=== PATIENT | female | born 1995 | race Caucasian/White ===

== ENCOUNTER 2020-03-02 15:02 | Inpatient (IN) | payer MEDICAID ==
[2020-03-02] MEDS ORDERED: Sodium Chloride 0.9% 10 ML Syringe FLUSH PRN (15:37)
[2020-03-02] MEDS ORDERED: Nalbuphine 10 MG/1 ML Vial IVPUSH PRN (15:37)
[2020-03-02] MEDS ORDERED: Acetaminophen 325 MG Tab PO PRN (15:37)
[2020-03-02] MEDS ORDERED: Oxytocin/Lactated Ringers 10 UNIT/1,000 ML BAG IV SCH (15:45)
[2020-03-02] MEDS ORDERED: Lactated Ringers 1,000 ML IV SCH (15:45)
[2020-03-02] MEDS: Misoprostol 25 MCG (1/4 of 100 MCG) Tab PO PRN ×2 (17:25→21:47)
--- NOTE | 2020-03-02 17:45 | PCM.LDHP ---
L&D History of Present Illness - General Date of Service: 03/02/20 Admit Problem/Dx: Patient Status Order with Admit Dx/Problem 03/02/20 15:38 Patient Status [ADT] Routine Admission Diagnosis/Problem Admission Diagnosis/Problem Source of Information: Patient History Limitations: Reports: No Limitations - History of Present Illness Introduction:: Mary Jane Walton is a 24-year-old G1, P0 at 39 weeks 6 days by a 20-week ultrasound who presents for elective induction of labor. She states that since last week she has not had any significant changes. She did have some increased amounts of cramping for the first night after she had her membranes stripped in the office. She denies any significant contractions other than the occasional Leslie Velez contractions since last week. She denies any leaking of fluid or vaginal bleeding. Reports that she has been having good movement. Timing/Duration: Reports: intermittent Location, : Reports: Pelvic Quality: Reports: Pressure Severity: Mild Associated Symptoms: Denies: vaginal bleeding, vaginal discharge, vaginal fluid Present Illness Comments:: Mary Jane Walton is a 24-year-old G1, P0 at 39 weeks 6 days by a 20-week ultrasound who presents for elective induction of labor. She had routine care with myself, Dr. Felpie, starting at 20 weeks gestational age when she had a dating ultrasound for her . She declined the flu vaccine during . She received Tdap vaccine on December 10, 2019. She had an anatomy ultrasound done at 21 weeks gestational age that was consistent with her earlier 20-week ultrasound. She did not have any issues or complications during her . This has been uncomplicated. [employer]ER CLE[employer]ER history G1: Current Reports that her last Pap smear was 2 years ago and was normal. We will plan to get a repeat Pap smear after delivery. Denies history of sexual transmitted infections. labs Blood type: O+ Antibody screen: Negative First trimester hematocrit/hemoglobin: 30.0%/13.0 on October 15, 2019 Platelets: 278 on October 15, 2019 Urine culture: Normal urogenital romero on culture Rubella status: Immune Hepatitis B surface antigen: Negative RPR: Negative HIV: Negative Gonorrhea: Negative Chlamydia: Negative Anatomy ultrasound: Normal anatomy ultrasound, anterior placenta, no previa One hour glucose tolerance test: 90 Second trimester hematocrit/hemoglobin: 32.7%/11.1 on December 16, 2019 Platelets: 290 on December 16, 2019 GBS status: Negative - Related Data Allergies/Adverse Reactions: Allergies Allergy/AdvReac Type Severity Reaction Status Date / Time No Known Allergies Allergy Verified 03/02/20 16:04 Past Medical History Dermatologic History: Reports: Eczema - Past Surgical History HEENT Surgical History: Reports: Tonsillectomy Social & Family History - Tobacco Use Tobacco Use Status *Q: Never Tobacco User - Tobacco Core Measures Tobacco Use/Smoking Within Last 30 Days: No Smokeless Tobacco Use in Last 30 Days: No - Alcohol Use Alcohol Use History: No - Recreational Drug Use Recreational Drug Use: No Drug Use in Last 12 Months: No - Living Situation & Occupation Living situation: Reports: , with Spouse Occupation: Employed H&P Review of Systems - Review of Systems: Review Of Systems: See Below General: Denies: Fever, Chills, Malaise, Weakness, Fatigue HEENT: Reports: Sinus Congestion. Denies: Headaches, Rhinitis, Post Nasal Drip, Sore Throat, Visual Changes Pulmonary: Denies: Shortness of Breath, Wheezing, Pleuritic Chest Pain, Cough Cardiovascular: Denies: Chest Pain, Palpitations, Dyspnea on Exertion, Orthopnea Gastrointestinal: Reports: Nausea. Denies: Abdominal Pain, Constipation, Diarrhea, Vomiting Genitourinary: Denies: Dysuria, Frequency, Burning, Pain, Urgency Musculoskeletal: Reports: Back Pain Skin: Denies: Rash, Lesions Psychiatric: Denies: Depression, Anxiety L&D Exam - Exam Exam: See Below - Vital Signs Vital Signs: Last Vital Signs Temp 37.1 C 03/02/20 15:27 Pulse 83 03/02/20 15:27 Resp 18 03/02/20 15:27 BP 140/88 03/02/20 15:27 Pulse Ox 97 03/02/20 15:27 - OB Specific Contraction Duration (sec): 45-60 Contraction Frequency (min): 10-15 Contraction Intensity: Mild Movement: Active Heart Tones: Present Heart Tones per Min: 130 (+15 x 15 accelerations, no decelerations) Heart Rate (FHR) Variability: Moderate (6-25 bmp) Presentation: Vertex Estimated Weight: 7-7.5 lbs Ryley's - Matta Score Matta Score Cervix Position: Midposition Matta Score Consistency: Medium Matta Score Effacement: 31-50% (50%) Matta Score Dilation: 1-2 cm (1.5 cm) Matta Score Infant's Station: -3 (-4) Matta Score Total: 4 - Exam General: Alert, Oriented HEENT: Conjunctiva Clear, EOMI Neck: Supple, Trachea Midline Lungs: Clear to Auscultation, Normal Respiratory Effort Cardiovascular: Regular Rate, Regular Rhythm GI/Abdominal Exam: Soft, Non-Tender, No Distention, Other Genitourinary: Normal external exam Back Exam: Normal Inspection Extremities: Normal Inspection, Pedal Edema (1+) Skin: Warm, Dry, Intact Psychiatric: Alert, Normal Affect, Normal Mood - Patient Data Lab Results Last 24 hrs: Laboratory Results - last 24 hr 03/02/20 03/02/20 03/02/20 Range/Units 16:06 16:06 16:10 WBC 8.58 (3.98-10.04) K/mm3 RBC 3.56 L (3.98-5.22) M/mm3 Hgb 11.8 (11.2-15.7) gm/dl Hct 34.7 (34.1-44.9) % MCV 97.5 H (79.4-94.8) fl MCH 33.1 H (25.6-32.2) pg MCHC 34.0 (32.2-35.5) g/dl RDW Std Deviation 50.5 H (36.4-46.3) fL Plt Count 264 (182-369) K/mm3 MPV 9.2 L (9.4-12.3) fl Neut % (Auto) 72.0 H (34.0-71.1) % Lymph % (Auto) 16.9 L (19.3-51.7) % Heard % (Auto) 9.8 (4.7-12.5) % Eos % (Auto) 0.5 L (0.7-5.8) Baso % (Auto) 0.1 (0.1-1.2) % Neut # (Auto) 6.18 H (1.56-6.13) K/mm3 Lymph # (Auto) 1.45 (1.18-3.74) K/mm3 Heard # (Auto) 0.84 H (0.24-0.36) K/mm3 Eos # (Auto) 0.04 (0.04-0.36) K/mm3 Baso # (Auto) 0.01 (0.01-0.08) K/mm3 Sodium 140 (136-145) mEq/L Potassium 3.9 (3.5-5.1) mEq/L Chloride 106 (98-107) mEq/L Carbon Dioxide 24 (21-32) mEq/L Anion Gap 13.9 (5-15) BUN 6 L (7-18) mg/dL Creatinine 0.5 L (0.55-1.02) mg/dL Est Cr Clr Drug Dosing TNP Estimated GFR (MDRD) > 60 (>60) mL/min BUN/Creatinine Ratio 12.0 L (14-18) Glucose 98 (74-106) mg/dL Calcium 8.9 (8.5-10.1) mg/dL Total Bilirubin 0.6 (0.2-1.0) mg/dL AST 17 (15-37) U/L ALT 23 (14-59) U/L Alkaline Phosphatase 187 H (46-116) U/L Total Protein 6.5 (6.4-8.2) g/dl Albumin 2.7 L (3.4-5.0) g/dl Globulin 3.8 gm/dL Albumin/Globulin Ratio 0.7 L (1-2) SARS-CoV-2 RNA (ANGE) Negative (NEGATIVE) Result Diagrams: 03/02/20 16:06 03/02/20 16:06 - Problem List (1) 40 weeks gestation of SNOMED Code(s): 15955834 ICD Code: Z3A.40 - 40 WEEKS GESTATION OF Status: Acute Current Visit: Yes Problem List Initiated/Reviewed/Updated: Yes Orders Last 24hrs: Active Orders 24 hr Category Date Time Status Patient Status [ADT] Routine ADT 03/02/20 15:38 Active Activity as Tolerated [RC] PFP Care 03/02/20 15:37 Active Communication Order [RC] ASDIRECTED Care 03/02/20 15:37 Active Communication Order [RC] ASDIRECTED Care 03/02/20 15:42 Active Communication Order [RC] ASDIRECTED Care 03/02/20 15:42 Active Communication Order [RC] ASDIRECTED Care 03/02/20 15:42 Active Heart Tones [RC] ASDIRECTED Care 03/02/20 15:38 Active Monitoring [RC] INTERMITTENT Care 03/02/20 15:42 Active Non Stress Test [RC] PER UNIT ROUTINE Care 03/02/20 15:37 Active Notify Provider Vital Signs [RC] PRN Care 03/02/20 15:40 Active Notify Provider [RC] ASDIRECTED Care 03/02/20 15:42 Active Notify Provider [RC] PFP Care 03/02/20 15:37 Active Notify Provider [RC] PRN Care 03/02/20 15:37 Active Peripheral IV Care [RC] . DIRECTED Care 03/02/20 15:38 Active Pump Management, Intrathecal [RC] ASDIRECTED Care 03/02/20 15:39 Active Urinary Catheter Assessment [RC] ASDIRECTED Care 03/02/20 15:37 Active Vaginal Exam [RC] ASDIRECTED Care 03/02/20 15:42 Active Vital Signs [RC] PER UNIT ROUTINE Care 03/02/20 15:37 Active Regular Diet [DIET] Diet 03/02/20 Lunch Active PROTEIN/CREATININE RATIO,URINE [URCHEM] Routine Lab 03/02/20 15:37 Ordered RAPID PLASMA REAGIN,RPR [CHEM] Routine Lab 03/02/20 16:06 Received Acetaminophen [TylenoL] Med 03/02/20 15:37 Active 650 mg PO Q6H PRN Lactated Ringers [Ringers, Lactated] 1,000 ml Med 03/02/20 15:45 Active IV ASDIRECTED Lactated Ringers [Ringers, Lactated] 1,000 ml Med 03/02/20 15:45 Active IV ASDIRECTED Nalbuphine [Nubain] Med 03/02/20 15:37 Active 10 mg IVPUSH Q2H PRN Oxytocin/Lactated Ringers [Pitocin in LR 10 Units/1,000 Med 03/02/20 15:45 Active ML] 10 unit in 1,000 ml IV .CONTINUOUS Sodium Chloride 0.9% [Saline Flush] Med 03/02/20 15:37 Active 10 ml FLUSH ASDIRECTED PRN miSOPROStoL [Cytotec] Med 03/02/20 15:42 Active 25 mcg PO Q4H PRN Electronic Heart Tones Ext w TOCO [WOMSER] Oth 03/02/20 15:37 Ordered Routine Electronic Heart Tones Internal [WOMSER] Per Unit Oth 03/02/20 15:37 Ordered Routine Medication Administration Instruction [OM.PC] Oth 03/02/20 15:45 Ordered ASDIRECTED Peripheral IV Insertion Adult [OM.PC] Routine Oth 03/02/20 15:37 Ordered Resuscitation Status Routine Resus Stat 03/02/20 15:37 Ordered Medication Orders Acetaminophen (Tylenol) 650 mg PO Q6H PRN PRN Reason: Pain (Mild 1-3) and fever Oxytocin/Lactated Ringer's (Pitocin In Lr 10 Units/1,000 Ml) 10 unit in 1,000 mls @ 100 mls/hr IV .CONTINUOUS GRETA; Protocol Lactated Ringer's (Ringers, Lactated) 1,000 mls @ 100 mls/hr IV ASDIRECTED GRETA Lactated Ringer's (Ringers, Lactated) 1,000 mls @ 40 mls/hr IV ASDIRECTED GRETA Misoprostol (Cytotec) 25 mcg PO Q4H PRN PRN Reason: cervical ripening Last Admin: 03/02/20 17:25 Dose: 25 mcg Documented by: AMAURI Nalbuphine HCl (Nubain) 10 mg IVPUSH Q2H PRN PRN Reason: Pain Sodium Chloride (Saline Flush) 10 ml FLUSH ASDIRECTED PRN PRN Reason: Keep Vein Open Assessment/Plan Comment:: Mary Jane Walton is a 24-year-old G1, P0 at 39 weeks 6 days by a 20-week ultrasound undergoing elective induction of labor Patient was counseled on placement of a Yin bulb for mechanical dilation of the cervix with placement either by manual placement or with speculum. Patient agreed to the procedure. Patient underwent cervical examination that showed 1.5/50/-4/medium/mid position. It was felt that due to the location of the cervix it would be difficult to place manually and decision was made to place the Yin bulb with a speculum. Patient was placed in dorsal lithotomy position using the stirrups on the bed and the speculum was placed and the cervix was visualized. An 18 [place] Yin bulb was then passed through the cervix with a ring forceps and the Yin balloon was inflated. The Yin bulb had gentle traction applied after 30 mL of fluid was instilled and the balloon was noted to not be in the correct position. This was attempted 1 additional time and again the flow of was not in correct position. Decision was made to discontinue atte mpted placement with the ring forceps and speculum. Decision was made to attempt placement manually with a mandolin catheter stylette. Patient had the bed reassembled and she was then placed in dorsal supine position for placement with manual exam. The mandolin catheter stylette was inserted through the tubing of the catheter to approximately the level of the Yin balloon. A cervical exam was then performed and the dilation was unchanged from the previous exam. The Yin balloon was then placed through the cervix and advanced past the Yin balloon. The Yin balloon was then inflated with 60 mL of sterile saline. Gentle traction was again applied to the Yin catheter and the Yin catheter was felt to be in correct position through the cervix. The patient then had insertion of Cytotec 25 mcg vaginally for induction of labor. Refer to observation for elective induction of labor Start induction of labor with Cytotec 25 mcg vaginally now and every 4 hours Transcervical Yin bulb placed with use of mandolin catheter stylet Intermittent monitoring while on Cytotec with monitoring for 30 minutes after placement of Cytotec and may ambulate as tolerated with category [address] IV and have Lactated Ringer's at 125 ml/hr if not tolerating regular diet May have regular diet while on Cytotec induction Activity as tolerated May have epidural as desired Plans to breast-feed after delivery Anticipate vaginal delivery unless otherwise indicated Jim Felipe MD 5:54 PM 03/02/2020
[2020-03-02] MEDS ORDERED: Bupivacaine/fentaNYL/NS 100 ML Bag EPIDUR PRN (18:41)
[2020-03-02] MEDS ORDERED: fentaNYL 100 MCG/2 ML SDV EPIDUR PRN (18:41)
[2020-03-02] MEDS ORDERED: diphenhydrAMINE 50 MG/ML SDV IVPUSH PRN (18:41)
[2020-03-02] MEDS ORDERED: ePHEDrine 50 MG/ML SDV IVPUSH PRN (18:41)
--- NOTE | 2020-03-02 21:57 | PCM.PNLD ---
Labor Progress Note - VS & Meds Vital Signs: Last Vital Signs Temp 37.1 C 03/02/20 15:27 Pulse 83 03/02/20 15:27 Resp 18 03/02/20 15:27 BP 140/88 03/02/20 15:27 Pulse Ox 97 03/02/20 15:27 Active Medications: Current Medications Acetaminophen (Tylenol) 650 mg PO Q6H PRN PRN Reason: Pain (Mild 1-3) and fever Diphenhydramine HCl (Benadryl) 25 mg IVPUSH Q6H PRN PRN Reason: pruritis Ephedrine Sulfate (Ephedrine Sulfate) 5 mg IVPUSH ASDIRECTED PRN PRN Reason: Hypotension Fentanyl (Sublimaze) 100 mcg EPIDUR Q3H PRN PRN Reason: Pain Fentanyl/Bupivacaine HCl (Fentanyl/Bupivacaine/Ns 2 Mcg-0.125% 100 Ml) 100 ml EPIDUR ASDIRECTED PRN PRN Reason: Pain Oxytocin/Lactated Ringer's (Pitocin In Lr 10 Units/1,000 Ml) 10 unit in 1,000 mls @ 100 mls/hr IV .CONTINUOUS GRETA; Protocol Lactated Ringer's (Ringers, Lactated) 1,000 mls @ 100 mls/hr IV ASDIRECTED GRETA Lactated Ringer's (Ringers, Lactated) 1,000 mls @ 40 mls/hr IV ASDIRECTED GRETA Misoprostol (Cytotec) 25 mcg PO Q4H PRN PRN Reason: cervical ripening Last Admin: 03/02/20 21:47 Dose: 25 mcg Documented by: Nalbuphine HCl (Nubain) 10 mg IVPUSH Q2H PRN PRN Reason: Pain Sodium Chloride (Saline Flush) 10 ml FLUSH ASDIRECTED PRN PRN Reason: Keep Vein Open - Uterine Contractions Uterine Monitoring Mode: External [place] Contraction Frequency (min): 2-3 Contraction Duration (sec): 30-75 Contraction Intensity: Moderate Uterine Resting Tone: Soft - Monitoring Monitor Mode: Doppler/Auscultation Heart Rate (FHR) Baseline: 125 Heart Rate (FHR) Per Doppler: 125 Heart Rate (FHR) Variability: Moderate (6-25 bmp) Accelerations: Present, 15x15 Decelerations: None Strip Review: Category I - Vaginal Exam Dilation (cm): 3 Effacement (Percent): 90 Station: -3 (Difficult to fully assess station with Yin bulb in place) Cervical Position: Anterior Sterile Vaginal Exam Performed By: Jim Felipe - Labor Progress (Free Text) Labor Progress: Mary Jane Walton is a 24-year-old at 39 weeks 6 days undergoing elective induction of labor Patient making some progress with first dose of Cytotec given at 5:30 PM Patient had transcervical Yin bulb placed at that time Cervical exam at this time was 3/90/-3/soft/anterior with the Yin bulb able to be palpated through the cervical opening Vital signs within normal limits since initial elevated blood pressure Lab work all within normal limits and does not show any abnormalities Next dose of Cytotec placed vaginally with cervical exam Plan to transition to Pitocin for augmentation of labor once the Yin bulb has come out Anticipate vaginal delivery unless otherwise indicated Jim Felipe MD 9:57 PM 03/02/2020
[2020-03-03] MEDS ORDERED: Bupivacaine 0.25% 10 ML SDV ONE
[2020-03-03] MEDS ORDERED: Oxytocin/Lactated Ringers 10 UNIT/1,000 ML BAG IV SCH ×2 (00:45→08:12)
[2020-03-03] MEDS: Lactated Ringers 1,000 ML IV SCH ×3 (00:54→05:29)
--- NOTE | 2020-03-03 02:43 | PCM.PNLD ---
Labor Progress Note - VS & Meds Vital Signs: Last Vital Signs Temp 37.1 C 03/02/20 15:27 Pulse 83 03/02/20 15:27 Resp 18 03/02/20 15:27 BP 140/88 03/02/20 15:27 Pulse Ox 97 03/02/20 15:27 Active Medications: Current Medications Acetaminophen (Tylenol) 650 mg PO Q6H PRN PRN Reason: Pain (Mild 1-3) and fever Diphenhydramine HCl (Benadryl) 25 mg IVPUSH Q6H PRN PRN Reason: pruritis Ephedrine Sulfate (Ephedrine Sulfate) 5 mg IVPUSH ASDIRECTED PRN PRN Reason: Hypotension Fentanyl (Sublimaze) 100 mcg EPIDUR Q3H PRN PRN Reason: Pain Fentanyl/Bupivacaine HCl (Fentanyl/Bupivacaine/Ns 2 Mcg-0.125% 100 Ml) 100 ml EPIDUR ASDIRECTED PRN PRN Reason: Pain Oxytocin/Lactated Ringer's (Pitocin In Lr 10 Units/1,000 Ml) 10 unit in 1,000 mls @ 100 mls/hr IV .CONTINUOUS GRETA; Protocol Lactated Ringer's (Ringers, Lactated) 1,000 mls @ 40 mls/hr IV ASDIRECTED GRETA Last Admin: 03/03/20 00:54 Dose: 999 mls/hr Documented by: Oxytocin/Lactated Ringer's (Pitocin In Lr 10 Units/1,000 Ml) 10 unit in 1,000 mls @ 12 mls/hr IV TITRATE GRETA; Protocol Nalbuphine HCl (Nubain) 10 mg IVPUSH Q2H PRN PRN Reason: Pain Sodium Chloride (Saline Flush) 10 ml FLUSH ASDIRECTED PRN PRN Reason: Keep Vein Open Discontinued Medications Lactated Ringer's (Ringers, Lactated) 1,000 mls @ 100 mls/hr IV ASDIRECTED GRETA Misoprostol (Cytotec) 25 mcg PO Q4H PRN PRN Reason: cervical ripening Last Admin: 03/02/20 21:47 Dose: 25 mcg Documented by: - Uterine Contractions Uterine Monitoring Mode: IUPC Contraction Frequency (min): 1-2 Contraction Duration (sec): 45-60 Contraction Intensity: Strong Uterine Resting Tone: Soft - Monitoring Monitor Mode: Spiral Electrode Heart Rate (FHR) Baseline: 155 Heart Rate (FHR) Variability: Moderate (6-25 bmp) Accelerations: Present, 15x15 Decelerations: Early, Recurrent (>50% x 20 min) Strip Review: Category I - Vaginal Exam Dilation (cm): 7 Effacement (Percent): 70 Station: 0 Cervical Position: Anterior Sterile Vaginal Exam Performed By: Jim Felipe Vaginal Exam Comment: Patient with a category 2 contraction pattern with tachycardia that did not resolve with 1 L fluid bolus. Nurse desired to have closer monitoring with internal monitors. Patient counseled on the risks and benefits of the procedure including need for artificial rupture membranes in order to place the internal monitors. Patient gave verbal consent to proceed with the procedure for internal monitor placement. Patient placed in dorsal supine positions and cervical exam performed and she was found to be 7/70/0/soft/anterior. Artificial rupture of membranes performed with [place] with return of moderate amount of fluid with light meconium staining. A scalp electrode was placed without difficulty and good heart rate was obtained. An intrauterine pressure catheter was then placed without difficulty with some bloody stained fluid noted to be within the IUPC catheter. No vaginal bleeding noted after the placement of the IUPC. Mother and tolerated procedure without difficulty. - Labor Progress (Free Text) Labor Progress: Mary Jane Walton is a 24-year-old at 40 weeks 0 days undergoing elective induction of labor Patient was having a category 2 monitoring strip and nurse wanted internal monitors for closer monitoring. Patient had been counseled on having the procedure and underwent the procedure as per the note above. There was notation of some bloody stained fluid within the IUPC catheter at time of placement of the IUPC. There is no bleeding noted in the fluid coming out vaginally after placement of the IUPC. * Patient making good progress at this time * Tachysystole noted with uterine contractions every 1 to 1.5 minutes. Recommend to withhold any augmentation at this time * Uterine contractions appear to be adequate with good [place] units measuring approximately 630 units * After placement of the monitors it appears that patient is having a category 2 strip with alternating between minimal to moderate variability and early decelerations * Vital signs continues to be good at this time without any mild range blood pressures * Continue routine monitoring of vital signs * Patient may have epidural as desired * Notify consolidation accountant as indicated with light meconium stained fluid * Anticipate vaginal delivery unless otherwise indicated Jim Felipe MD 2:47 AM 03/03/2020
--- NOTE | 2020-03-03 03:31 | PCM.PREANE ---
Preanesthetic Assessment - Procedure Proposed Procedure: epidural - Anesthesia/Transfusion/Family Hx Anesthesia History: Prior Anesthesia Without Reaction Family History of Anesthesia Reaction: No Transfusion History: No Prior Transfusion(s) Type of Transfusion Reactions: Reports: Unknown - Review of Systems General: Fatigue Pulmonary: No Symptoms Cardiovascular: No Symptoms Gastrointestinal: Abdominal Pain (labor) Neurological: No Symptoms Other: Reports: None - Physical Assessment Vital Signs: Last Vital Signs Temp 37.1 C 03/02/20 15:27 Pulse 83 03/02/20 15:27 Resp 18 03/02/20 15:27 BP 140/88 03/02/20 15:27 Pulse Ox 97 03/02/20 15:27 Height: 1.6 m Weight: 84.822 kg ASA Class: 2 Mental Status: Alert & Oriented x3 Airway Class: Mallampati = 1 Dentition: Reports: Normal Dentition Thyro-Mental Finger Breadths: 3 Mouth Opening Finger Breadths: 3 ROM/Head Extension: Full Lungs: Clear to Auscultation, Normal Respiratory Effort Cardiovascular: Regular Rate, Regular Rhythm - Lab Values: Laboratory Last Values WBC 8.58 K/mm3 (3.98-10.04) 03/02/20 16:06 RBC 3.56 M/mm3 (3.98-5.22) L 03/02/20 16:06 Hgb 11.8 gm/dl (11.2-15.7) 03/02/20 16:06 Hct 34.7 % (34.1-44.9) 03/02/20 16:06 MCV 97.5 fl (79.4-94.8) H 03/02/20 16:06 MCH 33.1 pg (25.6-32.2) H 03/02/20 16:06 MCHC 34.0 g/dl (32.2-35.5) 03/02/20 16:06 RDW Std Deviation 50.5 fL (36.4-46.3) H 03/02/20 16:06 Plt Count 264 K/mm3 (182-369) 03/02/20 16:06 MPV 9.2 fl (9.4-12.3) L 03/02/20 16:06 Neut % (Auto) 72.0 % (34.0-71.1) H 03/02/20 16:06 Lymph % (Auto) 16.9 % (19.3-51.7) L 03/02/20 16:06 [place] % (Auto) 9.8 % (4.7-12.5) 03/02/20 16:06 Eos % (Auto) 0.5 (0.7-5.8) L 03/02/20 16:06 Baso % (Auto) 0.1 % (0.1-1.2) 03/02/20 16:06 Neut # (Auto) 6.18 K/mm3 (1.56-6.13) H 03/02/20 16:06 Lymph # (Auto) 1.45 K/mm3 (1.18-3.74) 03/02/20 16:06 [place] # (Auto) 0.84 K/mm3 (0.24-0.36) H 03/02/20 16:06 Eos # (Auto) 0.04 K/mm3 (0.04-0.36) 03/02/20 16:06 Baso # (Auto) 0.01 K/mm3 (0.01-0.08) 03/02/20 16:06 Sodium 140 mEq/L (136-145) 03/02/20 16:06 Potassium 3.9 mEq/L (3.5-5.1) 03/02/20 16:06 Chloride 106 mEq/L (98-107) 03/02/20 16:06 Carbon Dioxide 24 mEq/L (21-32) 03/02/20 16:06 Anion Gap 13.9 (5-15) 03/02/20 16:06 BUN 6 mg/dL (7-18) L 03/02/20 16:06 Creatinine 0.5 mg/dL (0.55-1.02) L 03/02/20 16:06 Est Cr Clr Drug Dosing TNP 03/02/20 16:06 Estimated GFR (MDRD) > 60 mL/min (>60) 03/02/20 16:06 BUN/Creatinine Ratio 12.0 (14-18) L 03/02/20 16:06 Glucose 98 mg/dL (74-106) 03/02/20 16:06 Calcium 8.9 mg/dL (8.5-10.1) 03/02/20 16:06 Total Bilirubin 0.6 mg/dL (0.2-1.0) 03/02/20 16:06 AST 17 U/L (15-37) 03/02/20 16:06 ALT 23 U/L (14-59) 03/02/20 16:06 Alkaline Phosphatase 187 U/L (46-116) H 03/02/20 16:06 Total Protein 6.5 g/dl (6.4-8.2) 03/02/20 16:06 Albumin 2.7 g/dl (3.4-5.0) L 03/02/20 16:06 Globulin 3.8 gm/dL 03/02/20 16:06 Albumin/Globulin Ratio 0.7 (1-2) L 03/02/20 16:06 Ur Random Creatinine 15.6 mg/dL (30.0-125.0) L 03/02/20 18:15 U Random Total Protein < 6.0 mg/dL (0.0-11.8) 03/02/20 18:15 Protein/Creatinin Ratio TNP 03/02/20 18:15 RPR Non-reactive (NONREACTIVE) 03/02/20 16:06 SARS-CoV-2 RNA (ANGE) Negative (NEGATIVE) 03/02/20 16:10 - Allergies Allergies/Adverse Reactions: Allergies Allergy/AdvReac Type Severity Reaction Status Date / Time No Known Allergies Allergy Verified 03/02/20 16:04 - Anesthesia Plan Pre-Op Medication Ordered: None - Acknowledgements Anesthesia Type Planned: Epidural Pt an Appropriate Candidate for the Planned Anesthesia: Yes Alternatives and Risks of Anesthesia Discussed w Pt/Guardian: Yes Pt/Guardian Understands and Agrees with Anesthesia Plan: Yes PreAnesthesia Questionnaire HEENT History: Reports: Impaired Vision Gastrointestinal History: Reports: GERD 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: Dermatologic History: Reports: Eczema - Past Surgical History HEENT Surgical History: Reports: Tonsillectomy - SUBSTANCE USE Tobacco Use Status *Q: Never Tobacco User Tobacco Use Within Last Twelve Months: No Recreational Drug Use History: No - HOME MEDS Home Medications: Home Meds Pnv No.95/Ferrous Fum/Folic AC [ Tablet] 1 tab PO DAILY 03/02/20 [Histor y] - CURRENT (IN HOUSE) MEDS Current Meds: Current Medications Acetaminophen (Tylenol) 650 mg PO Q6H PRN PRN Reason: Pain (Mild 1-3) and fever Diphenhydramine HCl (Benadryl) 25 mg IVPUSH Q6H PRN PRN Reason: pruritis Ephedrine Sulfate (Ephedrine Sulfate) 5 mg IVPUSH ASDIRECTED PRN PRN Reason: Hypotension Fentanyl (Sublimaze) 100 mcg EPIDUR Q3H PRN PRN Reason: Pain Last Admin: 03/03/20 03:12 Dose: 100 mcg Documented by: Fentanyl/Bupivacaine HCl (Fentanyl/Bupivacaine/Ns 2 Mcg-0.125% 100 Ml) 100 ml EPIDUR ASDIRECTED PRN PRN Reason: Pain Last Admin: 03/03/20 03:12 Dose: 100 ml Documented by: Oxytocin/Lactated Ringer's (Pitocin In Lr 10 Units/1,000 Ml) 10 unit in 1,000 mls @ 100 mls/hr IV .CONTINUOUS GRETA; Protocol Lactated Ringer's (Ringers, Lactated) 1,000 mls @ 40 mls/hr IV ASDIRECTED GRETA Last Admin: 03/03/20 03:22 Dose: 999 mls/hr Documented by: Oxytocin/Lactated Ringer's (Pitocin In Lr 10 Units/1,000 Ml) 10 unit in 1,000 mls @ 12 mls/hr IV TITRATE GRETA; Protocol Nalbuphine HCl (Nubain) 10 mg IVPUSH Q2H PRN PRN Reason: Pain Sodium Chloride (Saline Flush) 10 ml FLUSH ASDIRECTED PRN PRN Reason: Keep Vein Open Discontinued Medications Lactated Ringer's (Ringers, Lactated) 1,000 mls @ 100 mls/hr IV ASDIRECTED GRETA Misoprostol (Cytotec) 25 mcg PO Q4H PRN PRN Reason: cervical ripening Last Admin: 03/02/20 21:47 Dose: 25 mcg Documented by:
--- NOTE | 2020-03-03 07:53 | PCM.DEL ---
L & D Note - General Info Date of Service: 03/03/20 Mother's Due Date: 03/03/20 - Delivery Note Labor: Augmented by ARM Cervical Ripening Method: Balloon Device, Misoprostil Delivery Outcome: Livebirth Delivery Method: Spontaneous Vaginal Delivery-Single Delivery Mode: Vacuum Extraction Presentation: Vertex Nuchal Cord: None Anesthesia Type: Epidural Laceration: Labial (Right lateral labia minora laceration repaired with 4-0 Vicryl), Perineal (2nd degree midline perineal repaired with 3-0 Vicryl) Suture type: Vicryl Suture size: 3-0 Placenta: Intact, Spontaneous Cord: 3 Vessels Estimated Blood Loss: 350 Resuscitation Needed: Yes : Suctioned, Bulb Syringe, Stimulated, Warmed, [place] Used, Warmer Used Provider: Jim Felipe Score 1 min: 8 Score 5 min: 9 Second Stage Interventions: Reports: Pushing Effectively, Pushing, Stirrups/Leg Supports Delivery Comments (Free Text/Narrative):: Stage I: Mary Jane Walton was admitted for elective induction of labor. On admission her cervix was dilated to 1.5 cm. She was GBS negative. She had manual placement of a 18 [place] Yin bulb catheter with the use of a mandolin catheter stylette and a Yin bulb was filled with 60 mL of sterile saline. Mother and infant tolerated procedure without difficulty. She was started on Cytotec for induction of labor. She received a total of 2 doses of Cytotec before the Yin bulb came out spontaneously. She began to have recurrent late decelerations versus early decelerations and it was felt that we should have internal monitors placed for closer monitoring of her contraction pattern and heart rate status. She had artificial rupture membranes with return of moderate amount of light meconium stained fluid. A scalp electrode was placed without difficulty and we were getting good heart tracing with the scalp electrode. An intrauterine pressure catheter was placed without difficulty. There was some bloody fluid within the intrauterine pressure catheter on placement but no bleeding vaginally during labor. During labor she did have episodes with recurrent late decelerations that resolved with repositioning. She progressed to complete and pushing. Stage II: During pushing the heart rate was noted to be in the 160s to 170s with recurrent late decelerations after pushing. There were times that we would stop pushing to allow for recovery during the contractions. Because of the ongoing recurrent late decelerations down into the 70s to 80s with the tachycardia it was felt that we should proceed with vacuum-assisted delivery. Patient was consented for the procedure and given risks and benefits of the procedure including maternal laceration, injury and shoulder dystocia. Patient stated understanding and desired to proceed with vacuum extractor delivery. The gaytan type suction cup was applied to the head and care was taken to ensure that there was no vaginal tissue in between the vacuum extractor and and the head. The end of the vacuum extractor was applied to the mechanical vacuum and with the next contraction the vacuum was applied with the vacuum applied to a level of 550 mmHg. Over the course of the next 2 contractions the was able to be delivered with maternal pushing and pulling effort with the vacuum extractor. The vacuum was released between contractions. The total time of the full vacuum was applied for approximately 50 seconds with the vacuum extractor in place for approximately 3 minutes. There were no pop offs. On 03/03/2020 she had a vacuum-assisted vaginal delivery of a live male at 06:50. Apgars of 8 & 9. Weight of 2960 g (6 lbs 8.4 oz). Length of 19.7 inches. There was no nuchal cord present. was delivered in TUNDE position. The cord was doubly clamped and cut by father the . was placed on mother's abdomen initially and then taken to the warmer for further resuscitation. Stage III: She had a spontaneous delivery of an intact placenta in Janee presentation. Three vessel cord. She was given pitocin and fundal massage. She had a second-degree midline perineal laceration that extended laterally to the right labia minora to approximately 3 cm below the clitoral mena. The second- degree midline perineal laceration was repaired with 3-0 Vicryl in normal fashio n. The right labial laceration was repaired with 4-0 Vicryl in a running imbricating layer to reapproximate the labial skin and then a subcutaneous running suture was used to close the skin of the labia. Mom and baby were stable to recovery. EBL of 350 mL. Jim Felipe MD 7:49 AM 03/03/2020 Induction Criteria - Matta Score Matta Score Dilation: 1-2 cm Matta Score Effacement: 40-50% Matta Score 's Station: -3 Matta Score Consistency: Medium Matta Score Cervix Position: Midposition Matta Score Total: 4 Matta Score Presenting Part: Reports: Cephalic - Induction Gestational Age >/= 39 wks: Yes Estimated Pelvis: Reports: Adequate Reassuring Monitoring Strip: Yes Absence of Tachy Systole: Yes Vacuum Extractor Progress Note - Alternative Labor Strategies Considered Alternative Labor Strategies Considered:: Reports: Yes Strategies Considered:: Reports: Contraction Intensity Adequate Indications Considered:: Reports: Yes Indications:: Reports: Suspicion of Immediate or Potential Compromise Time Out:: Reports: Yes - Patient Prepared Patient Prepared:: Reports: Yes Informed Consent:: Reports: Verbal Risks: Reports: Yes Risks Include:: Reports: Laceration, Shoulder Dystocia, Maternal Injury Anesthesia/Analgesia Adequate:: Reports: Yes - Probability of Success High Probability of Success:: Reports: Yes Weight Estimated:: Reports: AGA Patient Diabetic:: Reports: No Pelvis Adequate:: Reports: Yes Position:: Right occiput anterior Asynclitic:: Reports: Yes Station:: +2 - Application Time Maximum Application Time & Number of Pop-Offs Predetermined:: Reports: Yes Maximum Pressure Maintained in [place] (cm Hg):: 55 Total Application Time (min): *max=20min: 2 Type of Vacuum Used:: Reports: Cup: Gaytan type Vacuum Extraction: Successful - General Info Date of Service: 03/03/20 - Patient Data Vitals - Most Recent: Last Vital Signs Temp 37.1 C 03/02/20 15:27 Pulse 83 03/02/20 15:27 Resp 18 03/02/20 15:27 BP 140/88 03/02/20 15:27 Pulse Ox 97 03/02/20 15:27 Weight - Most Recent: 84.822 kg I&O - Last 24 Hours: Intake & Output 03/02/20 03/03/20 03/03/20 22:59 06:59 14:59 Intake Total 2000 Output Total 850 Balance 1150 Lab Results Last 24 Hours: Laboratory Results - last 24 hr 03/02/20 03/02/20 03/02/20 Range/Units 16:06 16:06 16:06 WBC 8.58 (3.98-10.04) K/mm3 RBC 3.56 L (3.98-5.22) M/mm3 Hgb 11.8 (11.2-15.7) gm/dl Hct 34.7 (34.1-44.9) % MCV 97.5 H (79.4-94.8) fl MCH 33.1 H (25.6-32.2) pg MCHC 34.0 (32.2-35.5) g/dl RDW Std Deviation 50.5 H (36.4-46.3) fL Plt Count 264 (182-369) K/mm3 MPV 9.2 L (9.4-12.3) fl Neut % (Auto) 72.0 H (34.0-71.1) % Lymph % (Auto) 16.9 L (19.3-51.7) % [place] % (Auto) 9.8 (4.7-12.5) % Eos % (Auto) 0.5 L (0.7-5.8) Baso % (Auto) 0.1 (0.1-1.2) % Neut # (Auto) 6.18 H (1.56-6.13) K/mm3 Lymph # (Auto) 1.45 (1.18-3.74) K/mm3 [place] # (Auto) 0.84 H (0.24-0.36) K/mm3 Eos # (Auto) 0.04 (0.04-0.36) K/mm3 Baso # (Auto) 0.01 (0.01-0.08) K/mm3 Sodium 140 (136-145) mEq/L Potassium 3.9 (3.5-5.1) mEq/L Chloride 106 (98-107) mEq/L Carbon Dioxide 24 (21-32) mEq/L Anion Gap 13.9 (5-15) BUN 6 L (7-18) mg/dL Creatinine 0.5 L (0.55-1.02) mg/dL Est Cr Clr Drug Dosing TNP Estimated GFR (MDRD) > 60 (>60) mL/min BUN/Creatinine Ratio 12.0 L (14-18) Glucose 98 (74-106) mg/dL Calcium 8.9 (8.5-10.1) mg/dL Total Bilirubin 0.6 (0.2-1.0) mg/dL AST 17 (15-37) U/L ALT 23 (14-59) U/L Alkaline Phosphatase 187 H (46-116) U/L Total Protein 6.5 (6.4-8.2) g/dl Albumin 2.7 L (3.4-5.0) g/dl Globulin 3.8 gm/dL Albumin/Globulin Ratio 0.7 L (1-2) Ur Random Creatinine (30.0-125.0) mg/dL U Random Total Protein (0.0-11.8) mg/dL Protein/Creatinin Ratio RPR Non-reactive (NONREACTIVE) SARS-CoV-2 RNA (ANGE) (NEGATIVE) 03/02/20 03/02/20 Range/Units 16:10 18:15 WBC (3.98-10.04) K/mm3 RBC (3.98-5.22) M/mm3 Hgb (11.2-15.7) gm/dl Hct (34.1-44.9) % MCV (79.4-94.8) fl MCH (25.6-32.2) pg MCHC (32.2-35.5) g/dl RDW Std Deviation (36.4-46.3) fL Plt Count (182-369) K/mm3 MPV (9.4-12.3) fl Neut % (Auto) (34.0-71.1) % Lymph % (Auto) (19.3-51.7) % [place] % (Auto) (4.7-12.5) % Eos % (Auto) (0.7-5.8) Baso % (Auto) (0.1-1.2) % Neut # (Auto) (1.56-6.13) K/mm3 Lymph # (Auto) (1.18-3.74) K/mm3 [place] # (Auto) (0.24-0.36) K/mm3 Eos # (Auto) (0.04-0.36) K/mm3 Baso # (Auto) (0.01-0.08) K/mm3 Sodium (136-145) mEq/L Potassium (3.5-5.1) mEq/L Chloride (98-107) mEq/L Carbon Dioxide (21-32) mEq/L Anion Gap (5-15) BUN (7-18) mg/dL Creatinine (0.55-1.02) mg/dL Est Cr Clr Drug Dosing Estimated GFR (MDRD) (>60) mL/min BUN/Creatinine Ratio (14-18) Glucose (74-106) mg/dL Calcium (8.5-10.1) mg/dL Total Bilirubin (0.2-1.0) mg/dL AST (15-37) U/L ALT (14-59) U/L Alkaline Phosphatase (46-116) U/L Total Protein (6.4-8.2) g/dl Albumin (3.4-5.0) g/dl Globulin gm/dL Albumin/Globulin Ratio (1-2) Ur Random Creatinine 15.6 L (30.0-125.0) mg/dL U Random Total Protein < 6.0 (0.0-11.8) mg/dL Protein/Creatinin Ratio TNP RPR (NONREACTIVE) SARS-CoV-2 RNA (ANGE) Negative (NEGATIVE) Med Orders - Current: Current Medications Acetaminophen (Tylenol) 650 mg PO Q6H PRN PRN Reason: Pain (Mild 1-3) and fever Diphenhydramine HCl (Benadryl) 25 mg IVPUSH Q6H PRN PRN Reason: pruritis Ephedrine Sulfate (Ephedrine Sulfate) 5 mg IVPUSH ASDIRECTED PRN PRN Reason: Hypotension Fentanyl (Sublimaze) 100 mcg EPIDUR Q3H PRN PRN Reason: Pain Last Admin: 03/03/20 03:12 Dose: 100 mcg Documented by: Fentanyl/Bupivacaine HCl (Fentanyl/Bupivacaine/Ns 2 Mcg-0.125% 100 Ml) 100 ml EPIDUR ASDIRECTED PRN PRN Reason: Pain Last Admin: 03/03/20 03:12 Dose: 100 ml Documented by: Oxytocin/Lactated Ringer's (Pitocin In Lr 10 Units/1,000 Ml) 10 unit in 1,000 mls @ 100 mls/hr IV .CONTINUOUS GRETA; Protocol Last Admin: 03/03/20 06:50 Dose: 500 mls/hr Documented by: Lactated Ringer's (Ringers, Lactated) 1,000 mls @ 40 mls/hr IV ASDIRECTED GRETA Last Admin: 03/03/20 05:29 Dose: 999 mls/hr Documented by: Oxytocin/Lactated Ringer's (Pitocin In Lr 10 Units/1,000 Ml) 10 unit in 1,000 mls @ 12 mls/hr IV TITRATE GRETA; Protocol Nalbuphine HCl (Nubain) 10 mg IVPUSH Q2H PRN PRN Reason: Pain Sodium Chloride (Saline Flush) 10 ml FLUSH ASDIRECTED PRN PRN Reason: Keep Vein Open Discontinued Medications Lactated Ringer's (Ringers, Lactated) 1,000 mls @ 100 mls/hr IV ASDIRECTED GRETA Misoprostol (Cytotec) 25 mcg PO Q4H PRN PRN Reason: cervical ripening Last Admin: 03/02/20 21:47 Dose: 25 mcg Documented by: - Problem List & Annotations (1) 40 weeks gestation of SNOMED Code(s): 50189849 Code(s): Z3A.40 - 40 WEEKS GESTATION OF Status: Acute Current Visit: Yes (2) Meconium in amniotic fluid affecting management of mother SNOMED Code(s): 24916704 Code(s): O36.8990 - MATERNAL CARE FOR OTH PROBLEMS, UNSP TRIMESTER, UNSP Status: Acute Current Visit: Yes (3) distress affecting delivery SNOMED Code(s): 302365131, 238451428 Code(s): O77.9 - LABOR AND DELIVERY COMPLICATED BY STRESS, UNSPECIFIED Status: Acute Current Visit: Yes (4) Vacuum extractor delivery, delivered SNOMED Code(s): 900261058 Code(s): O66.5 - ATTEMPTED APPLICATION OF VACUUM EXTRACTOR AND FORCEPS Status: Acute Current Visit: Yes (5) Vaginal delivery SNOMED Code(s): 319825923 Code(s): O80 - ENCOUNTER FOR FULL-TERM UNCOMPLICATED DELIVERY Status: Acute Current Visit: Yes (6) Second degree perineal laceration during delivery SNOMED Code(s): 3461738 Code(s): O70.1 - SECOND DEGREE PERINEAL LACERATION DURING DELIVERY Status: Acute Current Visit: Yes - Problem List Review Problem List Initiated/Reviewed/Updated: Yes - My Orders Last 24 Hours: My Active Orders 03/02/20 Lunch Regular Diet [DIET] 03/02/20 15:37 Activity as Tolerated [RC] PFP Communication Order [RC] ASDIRECTED Notify Provider [RC] PFP Notify Provider [RC] PRN Urinary Catheter Assessment [RC] ASDIRECTED Acetaminophen [TylenoL] 650 mg PO Q6H PRN Nalbuphine [Nubain] 10 mg IVPUSH Q2H PRN Sodium Chloride 0.9% [Saline Flush] 10 ml FLUSH ASDIRECTED PRN Electronic Heart Tones Ext w TOCO [WOMSER] Routine Electronic Heart Tones Internal [WOMSER] Per Unit Routine Peripheral IV Insertion Adult [OM.PC] Routine Resuscitation Status Routine 03/02/20 15:38 Patient Status [ADT] Routine Peripheral IV Care [RC] Q2HR 03/02/20 15:39 Pump Management, Intrathecal [RC] ASDIRECTED 03/02/20 15:40 Notify Provider Vital Signs [RC] PRN 03/02/20 15:42 Communication Order [RC] ASDIRECTED Communication Order [RC] ASDIRECTED Communication Order [RC] ASDIRECTED Notify Provider [RC] ASDIRECTED 03/02/20 15:45 Lactated Ringers [Ringers, Lactated] 1,000 ml IV ASDIRECTED Oxytocin/Lactated Ringers [Pitocin in LR 10 Units/1,000 ML] 10 unit in 1,000 ml IV .CONTINUOUS Medication Administration Instruction [OM.PC] ASDIRECTED 03/03/20 00:45 Oxytocin/Lactated Ringers [Pitocin in LR 10 Units/1,000 ML] 10 unit in 1,000 ml IV TITRATE 03/03/20 07:32 Patient Status Manage Transfer [TRANSFER] Routine - Plan Plan:: Mary Jane Walton is a 24-year-old now -0-0-1 female status post vacuum extractor vaginal delivery for distress during second stage of labor, PPD #0, complicated by meconium stained fluid Admit to inpatient following vacuum-assisted vaginal delivery Continue Pitocin per unit protocol following delivery of placenta and lactated Ringer's until tolerating regular diet Regular diet Vitals per unit routine Ibuprofen and Tylenol for pain control Assist with breast-feeding as needed Continue to monitor lochia Anticipate discharge home on day #2 Jim Felipe MD 7:49 AM 03/03/2020
[2020-03-03] MEDS ORDERED: Hydrocortisone Acetate 25 MG Supp RECTAL PRN (08:12)
[2020-03-03] MEDS ORDERED: Benzocaine/Menthol 20%-0.5% Spray 56 GM Canister TOP PRN (08:12)
[2020-03-03] MEDS ORDERED: Acetaminophen 325 MG Tab PO PRN (08:12)
[2020-03-03] MEDS ORDERED: Magnesium Hydroxide 400 MG/5 ML Susp 30 ML Cup PO PRN (08:12)
[2020-03-03] MEDS ORDERED: Prenatal Multivitamin with Calcium/Folic Acid/Iron Tab PO SCH (09:00)
[2020-03-03] MEDS: Ibuprofen 600 MG Tab PO PRN (10:21)
[2020-03-03] MEDS: Witch Hazel Medicated Pads 40/Jar TOP PRN (10:22)
[2020-03-04] MEDS: Docusate Sodium 100 MG Cap PO PRN ×2 (00:04→14:47)
[2020-03-04] MEDS: Ibuprofen 600 MG Tab PO PRN ×2 (00:04→07:54)
--- NOTE | 2020-03-04 07:30 | PCM48HPAN ---
Post Anesthesia Note - EVALUATION WITHIN 48HRS OF ANESTHETIC Vital Signs in Normal Range: Yes Patient Participated in Evaluation: Yes Respiratory Function Stable: Yes Airway Patent: Yes Cardiovascular Function Stable: Yes Hydration Status Stable: Yes Pain Control Satisfactory: Yes Nausea and Vomiting Control Satisfactory: Yes Mental Status Recovered: Yes Vital Signs: Last Vital Signs Temp 36.4 C 03/04/20 04:12 Pulse 75 03/04/20 04:12 Resp 15 03/04/20 04:12 BP 109/72 03/04/20 04:12 Pulse Ox 98 03/04/20 04:12
[2020-03-04] MEDS: Witch Hazel Medicated Pads 40/Jar TOP PRN (07:54)
--- NOTE | 2020-03-04 09:07 | PCM.SN.2 ---
- Free Text/Narrative Note: Post Progress Note PPD #1 Subjective: Doing well overall. Ambulating slowly but overall without difficulty. Lochia minimal and decreasing since yesterday. Denies passing any clots at this time. Voiding without difficulty. Reports that she is having decreasing amounts of pain with urination throughout the day. Tolerating regular diet without nausea or vomiting. Pain controlled with oral medications. Breast-feeding with minimal difficulty. Objective: Vitals: Vital Signs - 24 hr 03/03/20 03/03/20 03/03/20 11:00 16:12 20:18 Temperature 36.4 C 36.4 C 36.6 C Pulse, 83 81 84 Peripheral Respiratory 16 16 15 Rate Blood Pressure 123/74 112/75 128/72 O2 Sat by Pulse 97 100 97 Oximetry 03/04/20 03/04/20 00:09 04:12 Temperature 36.7 C 36.4 C Pulse, 89 75 Peripheral Respiratory 16 15 Rate Blood Pressure 123/71 109/72 O2 Sat by Pulse 96 98 Oximetry Physical Exam General: Alert and oriented, no acute distress Lungs: Clear to auscultation bilaterally Heart: Regular rate and rhythm Abdomen: Soft, minimal appropriate tenderness, non-distended, fundus midline, nontender, and at the umbilicus Extremities: 1+ edema in bilateral lower extremities to mid shins, no calf tenderness bilaterally ASSESSMENT: Mary Jane Walton is a 24-year-old -0-0-1 female status post vacuum extractor vaginal delivery for distress during second stage of labor, PPD #1, complicated by meconium stained fluid PLAN: Doing well Breast-feeding with minimal difficulty. Assist as needed Lochia minimal. Continue to monitor for appropriate lochia. Continue routine care Anticipate discharge home today Jim Felipe MD 9:06 AM 03/04/2020
--- NOTE | 2020-03-04 09:42 | PCM.DCSUM1 ---
Discharge Summary - Hospital Course Free Text/Narrative:: - General Info Date of Service: 03/03/20 Mother's Due Date: 03/03/20 - Delivery Note Labor: Augmented by ARM Cervical Ripening Method: Balloon Device, Misoprostil Delivery Outcome: Livebirth Delivery Method: Spontaneous Vaginal Delivery-Single Infant Delivery Mode: Vacuum Extraction Presentation: Vertex Nuchal Cord: None Anesthesia Type: Epidural Laceration: Labial (Right lateral labia minora laceration repaired with 4-0 Vicryl), Perineal (2nd degree midline perineal repaired with 3-0 Vicryl) Suture type: Vicryl Suture size: 3-0 Placenta: Intact, Spontaneous Cord: 3 Vessels Estimated Blood Loss: 350 Resuscitation Needed: Yes [place]: Suctioned, Bulb Syringe, Stimulated, Warmed, [place] Used, Warmer Used Provider: Jim Felipe Score 1 min: 8 Score 5 min: 9 Second Stage Interventions: Reports: Pushing Effectively, Pushing, Stirrups/Leg Supports Delivery Comments (Free Text/Narrative):: Stage I: Mary Jane Walton was admitted for elective induction of labor. On admission her cervix was dilated to 1.5 cm. She was GBS negative. She had manual placement of a 18 [place] Yin bulb catheter with the use of a mandolin catheter stylette and a Yin bulb was filled with 60 mL of sterile saline. Mother and tolerated procedure without difficulty. She was started on Cytotec for induction of labor. She received a total of 2 doses of Cytotec before the Yin bulb came out spontaneously. She began to have recurrent late decelerations versus early decelerations and it was felt that we should have internal monitors placed for closer monitoring of her contraction pattern and heart rate status. She had artificial rupture membranes with return of moderate amount of light meconium stained fluid. A scalp electrode was placed without difficulty and we were getting good heart tracing with the scalp electrode. An intrauterine pressure catheter was placed without difficulty. There was some bloody fluid within the intrauterine pressure catheter on placement but no bleeding vaginally during labor. During labor she did have episodes with recurrent late decelerations that resolved with repositioning. She progressed to complete and pushing. Stage II: During pushing the heart rate was noted to be in the 160s to 170s with recurrent late decelerations after pushing. There were times that we would stop pushing to allow for recovery during the contractions. Because of the ongoing recurrent late decelerations down into the 70s to 80s with the tachycardia it was felt that we should proceed with vacuum-assisted delivery. Patient was consented for the procedure and given risks and benefits of the procedure including maternal laceration, injury and shoulder dystocia. Patient stated understanding and desired to proceed with vacuum extractor delivery. The seo type suction cup was applied to the head and care was taken to ensure that there was no vaginal tissue in between the vacuum extractor and and the head. The end of the vacuum extractor was applied to the mechanical vacuum and with the next contraction the vacuum was applied with the vacuum applied to a level of 550 mmHg. Over the course of the next 2 contractions the infant was able to be delivered with maternal pushing and pulling effort with the vacuum extractor. The vacuum was released between contractions. The total time of the full vacuum was applied for approximately 50 seconds with the vacuum extractor in place for approximately 3 minutes. There were no pop offs. On 03/03/2020 she had a vacuum-assisted vaginal delivery of a live male at 06:50. Apgars of 8 & 9. Weight of 2960 g (6 lbs 8.4 oz). Length of 19.7 inches. There was no nuchal cord present. was delivered in TUNDE position. The cord was doubly clamped and cut by father the . Infant was placed on mother's abdomen initially and then taken to the warmer for further resuscitation. Stage III: She had a spontaneous delivery of an intact placenta in Janee presentation. Three vessel cord. She was given pitocin and fundal massage. She had a second-degree midline perineal laceration that extended laterally to the right labia minora to approximately 3 cm below the clitoral mena. The second- degree midline perineal laceration was repaired with 3-0 Vicryl in normal fashion. The right labial laceration was repaired with 4-0 Vicryl in a running imbricating layer to reapproximate the labial skin and then a subcutaneous running suture was used to close the skin of the labia. Mom and baby were stable to recovery. EBL of 350 mL. Diagnosis: Stroke: No - Discharge Data Discharge Date: 03/04/20 Discharge Disposition: Home, Self-Care 01 Condition: Good - Referral to Home Health Primary Care Physician: Jim Felipe MD - Discharge Diagnosis/Problem(s) (1) 40 weeks gestation of SNOMED Code(s): 40444636 ICD Code: Z3A.40 - 40 WEEKS GESTATION OF Status: Acute Current Visit: Yes (2) Meconium in amniotic fluid affecting management of mother SNOMED Code(s): 33846988 ICD Code: O36.8990 - MATERNAL CARE FOR OTH PROBLEMS, UNSP TRIMESTER, UNSP Status: Acute Current Visit: Yes (3) distress affecting delivery SNOMED Code(s): 898918230, 717294924 ICD Code: O77.9 - LABOR AND DELIVERY COMPLICATED BY STRESS, UNSPECIFIED Status: Acute Current Visit: Yes (4) Vacuum extractor delivery, delivered SNOMED Code(s): 167277399 ICD Code: O66.5 - ATTEMPTED APPLICATION OF VACUUM EXTRACTOR AND FORCEPS Status: Acute Current Visit: Yes (5) Vaginal delivery SNOMED Code(s): 445667677 ICD Code: O80 - ENCOUNTER FOR FULL-TERM UNCOMPLICATED DELIVERY Status: Acute Current Visit: Yes (6) Second degree perineal laceration during delivery SNOMED Code(s): 4787153 ICD Code: O70.1 - SECOND DEGREE PERINEAL LACERATION DURING DELIVERY Status: Acute Current Visit: Yes - Patient Summary/Data Operative Procedure(s) Performed: Vacuum extractor delivery Complications: distress during second stage of labor and delivered with vacuum extractor delivery. Consults: None Hospital Course: Mary Jane Walton was admitted for elective induction of labor. On admission her cervix was dilated to 1.5 cm. She was GBS negative. She had a transcervical [place] bulb catheter placed with manual placement and use of a mandolin catheter stylette. She was started on Cytotec for induction of labor and received 2 doses of Cytotec before the Yin bulb came out spontaneously. She was given an epidural for anesthesia. She had recurrent late decelerations and more accurate monitoring was needed for the heart tones. She had artificial rupture of membranes with light meconium stained fluid. She had placement of a scalp electrode at that was able to trace without difficulty. An intrauterine pressure catheter was placed without difficulty. She progressed to complete and began pushing. During pushing she had tachycardia into the 160s to 170s with recurrent late decelerations after pushing with contractions. Because of the recurrent late decelerations was recommended for her to have a vacuum-assisted vaginal delivery. On 03/03/2020 she had a vacuum-assisted vaginal delivery of a live male infant at 06:50. Apgars of 8 and 9. Weight of 2960 g (6 pounds 8.4 ounces). She had vacuum extractor delivery with a seo type suction cup and mechanical vacuum pump. The total application time of the vacuum extractor was 3 minutes and the full vacuum was applied for approximately 50 seconds. She delivered over the course of 2 contractions without any pop offs. Her course was uneventful. Her pain was well controlled and she had minimal lochia. She was ambulating, tolerating a regular diet and voiding normally. She was breast-feeding with minimal difficulty. She was afebrile and her hematocrit was 34.7 on admission. She desired to be discharged home in the afternoon of PPD #1. Her blood type is O+. - Patient Instructions Diet: Regular Diet as Tolerated Activity: Apply Ice, As Tolerated Activity, Other: Nothing in the vagina for 6 weeks Driving: May Drive Today Showering/Bathing: May Shower Notify Provider of: Fever, Increased Pain, Swelling and Redness, Drainage, Nausea and/or Vomiting Other/Special Instructions: Please contact your physician's office if you have heavy vaginal bleeding enough to soak a pad in less than an hour for several hours. Monitor for any signs of an infection in the breasts with severe pain or redness of the breast. - Discharge Plan *PRESCRIPTION DRUG MONITORING PROGRAM REVIEWED*: Not Applicable *COPY OF PRESCRIPTION DRUG MONITORING REPORT IN PATIENT CARMEN: Not Applicable Home Medications: Home Meds Pnv No.95/Ferrous Fum/Folic AC [ Tablet] 1 tab PO DAILY 03/02/20 [History] Acetaminophen [Tylenol] 650 mg PO Q6H PRN tablet 03/04/20 [Rx] Benzocaine/Menthol [Dermoplast Pain Relief [place]] 1 spray TOP ASDIRECTED PRN canister 03/04/20 [Rx] Docusate Sodium [Colace] 100 mg PO BID PRN cap 03/04/20 [Rx] Hydrocortisone Acetate [Anucort-HC] 25 mg RECTAL BID PRN supp 03/04/20 [Rx] Ibuprofen [Motrin] 600 mg PO Q6H PRN tablet 03/04/20 [Rx] svetlana Barrera [Lydia] 1 pad TOP ASDIRECTED PRN pad 03/04/20 [Rx] Patient Handouts: Care of a Perineal Tear, Care After Vaginal Delivery Referrals: Jim Felipe MD [Primary Care Provider] - (Follow-up in 2 weeks for routine visit or earlier as needed.) - Discharge Summary/Plan Comment DC Time >30 min.: No - Patient Data Vitals - Most Recent: Last Vital Signs Temp 36.4 C 03/04/20 04:12 Pulse 75 03/04/20 04:12 Resp 15 03/04/20 04:12 BP 109/72 03/04/20 04:12 Pulse Ox 98 03/04/20 04:12 Weight - Most Recent: 84.822 kg I&O - Last 24 hours: Intake & Output 03/03/20 03/04/20 03/04/20 22:59 06:59 14:59 Intake Total 1999 Balance 1999 Med Orders - Current: Current Medications Acetaminophen (Tylenol) 650 mg PO Q6H PRN PRN Reason: mild pain or fever Benzocaine/Menthol (Dermoplast Pain Relief [place]) 0 gm TOP ASDIRECTED PRN PRN Reason: Perineal Comfort Measure Last Admin: 03/03/20 10:21 Dose: 1 canister Documented by: Docusate Sodium (Colace) 100 mg PO BID PRN PRN Reason: Constipation Last Admin: 03/04/20 00:04 Dose: 100 mg Documented by: Hydrocortisone Acetate (Anucort-Hc) 25 mg RECTAL BID PRN PRN Reason: Hemorrhoid pain Oxytocin/Lactated Ringer's (Pitocin In Lr 10 Units/1,000 Ml) 10 unit in 1,000 mls @ 100 mls/hr IV TITRATE GRETA; Protocol Ibuprofen (Motrin) 600 mg PO Q6H PRN PRN Reason: Mild pain or fever Last Admin: 03/04/20 07:54 Dose: 600 mg Documented by: Magnesium Hydroxide (Milk Of Magnesia) 30 ml PO BEDTIME PRN PRN Reason: Constipation Prenat Multivit/[place]/Iron/Folic Ac ( Plus Iron) 1 each PO DAILY GRETA Last Admin: 03/03/20 10:21 Dose: 1 each Documented by: Svetlana Barrera (Tucks) 1 pad TOP ASDIRECTED PRN PRN Reason: Perineal Comfort Measure Last Admin: 03/04/20 07:54 Dose: 1 container Documented by: Discontinued Medications Acetaminophen (Tylenol) 650 mg PO Q6H PRN PRN Reason: Pain (Mild 1-3) and fever Bupivacaine HCl (Sensorcaine-Mpf 0.25%) 10 ml .ROUTE .STK-MED ONE Stop: 03/03/20 00:01 Diphenhydramine HCl (Benadryl) 25 mg IVPUSH Q6H PRN PRN Reason: pruritis Ephedrine Sulfate (Ephedrine Sulfate) 5 mg IVPUSH ASDIRECTED PRN PRN Reason: Hypotension Fentanyl (Sublimaze) 100 mcg EPIDUR Q3H PRN PRN Reason: Pain Last Admin: 03/03/20 03:12 Dose: 100 mcg Documented by: Fentanyl/Bupivacaine HCl (Fentanyl/Bupivacaine/Ns 2 Mcg-0.125% 100 Ml) 100 ml EPIDUR ASDIRECTED PRN PRN Reason: Pain Last Admin: 03/03/20 03:12 Dose: 100 ml Documented by: Oxytocin/Lactated Ringer's (Pitocin In Lr 10 Units/1,000 Ml) 10 unit in 1,000 mls @ 100 mls/hr IV .CONTINUOUS GRETA; Protocol Last Admin: 03/03/20 06:50 Dose: 500 mls/hr Documented by: Lactated Ringer's (Ringers, Lactated) 1,000 mls @ 100 mls/hr IV ASDIRECTED GRETA Lactated Ringer's (Ringers, Lactated) 1,000 mls @ 40 mls/hr IV ASDIRECTED GRETA Last Admin: 03/03/20 05:29 Dose: 999 mls/hr Documented by: Oxytocin/Lactated Ringer's (Pitocin In Lr 10 Units/1,000 Ml) 10 unit in 1,000 mls @ 12 mls/hr IV TITRATE GRETA; Protocol Misoprostol (Cytotec) 25 mcg PO Q4H PRN PRN Reason: cervical ripening Last Admin: 03/02/20 21:47 Dose: 25 mcg Documented by: Nalbuphine HCl (Nubain) 10 mg IVPUSH Q2H PRN PRN Reason: Pain Sodium Chloride (Saline Flush) 10 ml FLUSH ASDIRECTED PRN PRN Reason: Keep Vein Open
== END 2020-03-04 15:44 | disposition home or self-care (01) | DRG 807 ==
LOC: JD.OBCHECK 15:02 → JD.OB 15:03 → OBSVTOIN 03-03 06:50 → JD.OB 03-03 06:51
PROVIDERS: ADMIT Obstetrics & Gynecology; ATTEND Obstetrics & Gynecology
PROC: 10D07Z6 Extraction of Products of Conception, Vacuum, Via Natural or Artificial Opening (ICD-10-PCS; principal; 2020-03-03)
PROC: 0KQM0ZZ Repair Perineum Muscle, Open Approach (ICD-10-PCS; 2020-03-03)
PROC: 10907ZC Drainage of Amniotic Fluid, Therapeutic from Products of Conception, Via Natural or Artificial Opening (ICD-10-PCS; 2020-03-03)
PROC: 10H07YZ Insertion of Other Device into Products of Conception, Via Natural or Artificial Opening (ICD-10-PCS; 2020-03-03)
PROC: 3E0P7VZ Introduction of Hormone into Female Reproductive, Via Natural or Artificial Opening (ICD-10-PCS; 2020-03-03)
PROC: 3E0R3BZ Introduction of Anesthetic Agent into Spinal Canal, Percutaneous Approach (ICD-10-PCS; 2020-03-03)
PROC: 00HU33Z Insertion of Infusion Device into Spinal Canal, Percutaneous Approach (ICD-10-PCS; 2020-03-03)
DX: O77.0 Labor and delivery complicated by meconium in amniotic fluid (principal); Z37.0 Single live birth; O70.1 Second degree perineal laceration during delivery; O76 Abnormality in fetal heart rate and rhythm complicating labor and delivery; O66.5 Attempted application of vacuum extractor and forceps; Z3A.40 40 weeks gestation of pregnancy; Z20.822 Contact with and (suspected) exposure to COVID-19
CPT/HCPCS: 01967; 36415; 51702; 59025; 59409; 80053; 82570; 84156; 85025; 86592; A9270-GY; J2590; J3010; J3490; J7120; U0002